=== PATIENT | female | born 1965 | race Caucasian/White ===

== ENCOUNTER → 2018-05-28 | Outpatient (CLI) | payer OTHER ==
[~2018-05-28] MED LIST: BACL20 PO; BUPR100 PO; GABA300 PO; LOSA50 PO; MELA3 PO; METF500 PO; METO25 PO; Oxybutynin Chlor5 M1 PO; POTASSIUM PO; SALMON OIL PO; TRAACE PO; TRAZ100 PO; VITAMIN D PO
== END | disposition home or self-care (01) ==
LOC: LAB EV 16:47 → LAB SHORT 16:47
DX: N39.0 Urinary tract infection, site not specified (principal)
CPT/HCPCS: 87077; 87086; 87186